=== PATIENT | male | born 1990 | race Caucasian/White ===

== ENCOUNTER 2018-12-23 02:13 | Emergency (ER) | payer OTHER ==
[~2018-12-23] VITALS: Ht 172.7 cm; Wt 83.9 kg
[2018-12-23 02:30] LABS: ABSOLUTE BASOPHILS 0.1 thou/uL (0.0-0.2); ABSOLUTE EOSINOPHILS 0.1 thou/uL (0.0-0.7); ABSOLUTE LYMPHOCYTES 2.1 thou/uL (0.8-5.3); ABSOLUTE MONOCYTES 1.3 thou/uL (0.0-1.2); ABSOLUTE NEUTROPHILS 8.6 thou/uL (1.6-8.1); BASOPHILS 0.8 %; EOSINOPHILS 1.1 %; HEMATOCRIT 43.3 % (42.0-52.0); HEMOGLOBIN 14.6 gm/dL (14.0-18.0); LYMPHOCYTES 17.1 %; MCH 30.8 pg (26.0-34.0); MCHC 33.7 g/dL (28.0-37.0); MCV 91.3 fL (80.0-100.0); MONOCYTES 10.5 %; MPV 9.2 fl. (7.2-11.1); NUCLEATED RBCS 0 /100WBC; PLATELET COUNT* 276 thou/uL (150-400); POLYS 70.5 %; RBC 4.74 mil/uL (4.50-6.00); RDW-CV 13.5 % (10.5-14.5); WBC 12.2 thou/uL (4.0-11.0)
[2018-12-23 02:38] LABS: CALCIUM 9.3 mg/dL (8.5-10.1); POTASSIUM 4.5 mmol/L (3.5-5.1)
[2018-12-23 02:43] LABS: ALBUMIN 3.8 g/dL (3.4-5.0); TOTAL BILIRUBIN 0.2 mg/dL (<0.1-1.0); TOTAL PROTEIN 7.6 g/dL (6.4-8.2)
[2018-12-23 02:46] LABS: SALICYLATE 4.3 mg/dL (2.8-20.0)
[2018-12-23 02:47] LABS: ACETAMINOPHEN < 2 ug/mL (10-30); ALCOHOL < 10 mg/dL (<10)
[2018-12-23 03:10] LABS: URINE BILIRUBIN NEGATIVE (Negative); URINE BLOOD NEGATIVE (Negative); URINE CLARITY CLEAR; URINE COLOR YELLOW; URINE GLUCOSE-RANDOM NEGATIVE (Negative); URINE KETONES TRACE (Negative); URINE LEUKOCYTES-REFLEX NEGATIVE (Negative); URINE NITRITE-REFLEX NEGATIVE (Negative); URINE PROTEIN NEGATIVE (Negative); URINE SPECIFIC GRAVITY >= 1.030 (1.005-1.030); URINE UROBILINOGEN 0.2 E.U./dl (0.2-1.0)
[2018-12-23 03:18] LABS: AMP/METHAMP POSITIVE (Negative); BARBITURATES Negative (Negative); BENZODIAZEPINES Negative (Negative); COCAINE Negative (Negative); METHADONE Negative (Negative); OPIATES Negative (Negative); PCP Negative (Negative); THC POSITIVE (Negative)
[2018-12-23 03:28] VITALS: BP 138/80
--- NOTE | 2018-12-23 10:41 | EKG ---
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 : 1990 Requested By: Feliciano Mitchell Order Number: [id number] MD: Mynor Torres Measurements Intervals [place] Rate: 122 P: 84 OR: 135 QRS: 69 QRSD: 81 T: 60 QT: 297 QTc: 423 Interpretive Statements Sinus tachycardia artifact noted Consider right atrial enlargement Nonspecific T abnormalities, lateral leads No previous ECG available for comparison Electronically Signed On 12-23-2018 10:41:40 CDT by Mynor Torres [email or web address] <ELECTRONICALLY SIGNED> By: Mynor Torres MD, FACC 12/23/18 1041 0219 0219 Mynor Torres MD, FACC /EPI
== END 2018-12-23 03:29 | disposition home or self-care (01) ==
LOC: M.ERS 02:13
PROVIDERS: Family Medicine
DX: F19.10 Other psychoactive substance abuse, uncomplicated (principal); R42 Dizziness and giddiness